=== PATIENT | female | born 1975 | race Caucasian/White ===

== ENCOUNTER 2016-11-09 12:31 | Emergency (ER) | payer OTHER ==
--- NOTE | 2016-11-09 13:02 | RADIOLOGY REPORT ---
HISTORY: Fall with hand pain. COMPARISON: None. FINDINGS: Three views of the wrist obtained. There is a comminuted fracture of the distal radial metaphysis wit h probable extension to the articular surface of the distal radioulnar joint and radiocarpal compartm ent. There is impaction with dorsal displacement and angulation. By best estimate, dorsal angulation estimated at 45 degrees. A comminuted fracture of the ulnar styloid is noted. IMPRESSION: Comminuted and impacted distal radius fracture with dorsal displacement and angulation. Comminuted fracture of the ulnar styloid. Final Electronic Signature: This report was electronically signed by Neymar Velázquez MD on 11/09/2016 1 2:59 PM. [email or web address] /
--- NOTE | 2016-11-09 13:58 | RADIOLOGY REPORT ---
HISTORY: Evaluate left wrist after reduction. Fracture. COMPARISON: Earlier today FINDINGS: Three views of the wrist obtained. The left wrist has been placed in a cast. A transverse distal radi us fracture remains impacted and continues to show moderate dorsal displacement of distal fragments. Angulation has resolved. An ulnar styloid process fracture is likely unchanged. IMPRESSION: Resolved angulation of the intrajugular distal radius fracture, but persistent moderate dorsal displa cement of distal fragments. Ulnar styloid process fracture is likely unchanged. Final Electronic Signature: This report was electronically signed by Fabian Reese MD on 11/09/2016 1:55 PM. [email or web address] /
--- NOTE | 2016-11-09 14:10 | ER NURSING DOCUMENTATION ---
Nurse's Notes [facility] Name:Sharon Richardson Age:41 yrs Sex:Female :1975 Arrival Date:11/09/2016 Time:12:31 Bed6 Private MD: Diagnosis:Ulnar Styloid Fracture;Colles Fracture Presentation: 11/09 12:43 Presenting complaint: Patient states: Pt FOOSH on left. Splinted by [employer] r[employer], pt tg hiked out. Last meal at 0600, otherwise only sips of water. Fall at 10am. CMS intact. Transition of care: patient was not received from another setting of care. 12:43 Acuity: PEPPER 2 tg 12:43 Method Of Arrival: Private Vehicle tg Triage Assessment: 12:52 General: Appears in no apparent distress, Behavior is cooperative. Pain: Complains of tg pain in left wrist. Neuro: Level of Consciousness is awake, alert. Respiratory: Respiratory effort is even, unlabored. Derm: No deficits noted. Skin is pink, warm & dry. Musculoskeletal: Circulation, motion, and sensation intact Capillary refill < 3 seconds in left fingers. Historical: - Allergies: SULFA (SULFONAMIDES); - Home Meds: 1. MVI 2. ProAir HFA inhalation - PMHx: ASTHMA; atopic dermatitis; patent foramen ovale; - PSHx: uterine surgery; - Tetanus: < 10 years. - Ebola Screening: : Patient negative for fever greater than or equal to 101.5 degrees Fahrenheit, and additional compatible Ebola Virus Disease symptoms. Patient denies exposure to infectious person. Patient denies travel to an Ebola-affected area in the 21 days before illness onset. No symptoms or risks identified at this time. . - Immunization history: Flu Vaccine unknown. - Social history: Smoking status: Patient states was never smoker of tobacco. Screenin:53 Infectious Disease Risk Unable to Obtain. Abuse screen: Denies threats or abuse. Denies tg injuries from another. Nutritional screening: No deficits noted. Vital Signs: 12:48 BP 123 / 62; Pulse 50; Resp 14; Pulse Ox 99% on R/A; Weight 54.43 kg (R); Height 5 ft. tg 8 in. (172.72 cm) (R); Pain 4/10; 14:08 BP 118 / 61; Pulse 70; Resp 14; Pulse Ox 96% on R/A; Pain 0/10; tg 12:48 Body Mass Index 18.25 (54.43 kg, 172.72 cm) tg ED Course: 12:36 Patient arrived in ED. dp 12:43 Dwight Chauhan RN is Primary Nurse. tg 12:46 Triage completed. tg 12:53 Valuables Remains with patient. tg 13:08 Darci Phillips MD is Attending Physician. david 13:08 Affected limb iced. Affected limb elevated. tg 13:42 Port Xray Completed. kaylie 13:46 Assist Provider Assist provider with reduction of left wrist using traction, tg manipulation, Set up for procedure. Performed by Darci Phillips MD Immobilized with OCL splint, deny wrap, sling, Patient tolerated well. Administered Medications: No medications were administered Outcome: 13:56 Discharge ordered by . david 14:08 Discharged to home ambulatory. tg 14:08 Condition: stable 14:08 Discharge Assessment: Patient awake and alert. 14:08 Instructed on discharge instructions, follow up and referral plans. medication usage, Ortho Care Prescriptions given X 1. 14:09 Patient left the ED. tg 11/10 12:20 Discharge F/U Call: Spoke with: patient. Are you having any pain? no. Have you filled sj your prescriptions? n/a Did your discharge instructions answer all of your questions? yes Have you made a f/u appointment? yes Overall Care on a scale of 1-10 with 10 being the best care, you rate our care as: Other comments: currently having tingling to fingers. Encouraged to loosen deny wrap, keep elevated. if no improvement, call back. ED number given. Signatures: Dwight Chauhan, DIPTI RN Darci Phillips MD MD jm Abbott, Elaine Henao Denise dp
--- NOTE | 2016-11-09 14:10 | ER PHYSICIAN DOCUMENTATION ---
Physician Documentation [facility] Name:Sharon Richardson Age:41 yrs Sex:Female :1975 Arrival Date:11/09/2016 Time:12:31 Bed6 Private MD: Darci Dong Disposition: 11/09/16 13:56 Discharged to Home/Self Care. Impression: Ulnar Styloid Fracture, Colles Fracture. - Condition is Good. - Discharge Instructions: COLLES FRACTURE, Reduction Required. - Prescriptions for Hydrocodone- Acetaminophen 5-325 mg Oral Tablet - take 1 tablet by ORAL route every 6 hours As needed; 20 tablet. - Medical Reconciliation form form. - Follow up: Private Physician; When: As needed; Reason: Continuance of care. - Problem is new. - Symptoms have improved. HPI: 11/09 13:16 This 41 yrs old Female presents to ER via Private Vehicle with complaints of jm Wrist Injury - LEFT. 13:16 The patient or guardian reports pain. The complaints affect the left wrist diffusely. jm Context: resulted from a fall, on an outstretched hand. Onset: The symptom(s)/episode began/occurred 2 hour(s) ago. The patient has not recently seen a physician. Historical: - Allergies: SULFA (SULFONAMIDES); - Home Meds: 1. MVI 2. ProAir HFA inhalation - PMHx: ASTHMA; atopic dermatitis; patent foramen ovale; - PSHx: uterine surgery; - Tetanus: < 10 years. - Ebola Screening: : Patient negative for fever greater than or equal to 101.5 degrees Fahrenheit, and additional compatible Ebola Virus Disease symptoms. Patient denies exposure to infectious person. Patient denies travel to an Ebola-affected area in the 21 days before illness onset. No symptoms or risks identified at this time. . - Immunization history: Flu Vaccine unknown. - Social history: Smoking status: Patient states was never smoker of tobacco. ROS: 13:16 MS/extremity: Positive for injury or acute deformity, decreased range of motion, jm deformity. 13:16 Skin: Positive for swelling. 13:16 Neuro: Negative for numbness, tingling. Exam: 13:17 Hand exam: Exam is positive for decreased range of motion, deformity, Circulation is jm intact in all extremities. sensation intact. 13:17 Skin: Appearance: Color: pink, swelling, that are moderate, injury, is not appreciated, puncture(s), are not present. 13:17 Constitutional: The patient appears alert, awake. 13:17 Cardiovascular: Rate: normal, Rhythm: regular. Vital Signs: 12:48 BP 123 / 62; Pulse 50; Resp 14; Pulse Ox 99% on R/A; Weight 54.43 kg (R); Height 5 ft. tg 8 in. (172.72 cm) (R); Pain 4/10; 14:08 BP 118 / 61; Pulse 70; Resp 14; Pulse Ox 96% on R/A; Pain 0/10; tg 12:48 Body Mass Index 18.25 (54.43 kg, 172.72 cm) tg Procedures: 13:17 Nerve block: (regional) of L wrist hematoma. Medication: Lidocaine 1% with epinephrine, david Amount: 10 mls were injected, Effect: the patient's symptoms are improved, Set up for procedure. Performed by Darci Phillips MD Patient tolerated well. Reduction: of the left wrist, using traction, manipulation, Immobilized with wrist splint, Patient tolerated well. Post reduction film - reveals improved alignment. Splinting: Splint applied to left arm using Orthoglass splint, applied by myself. post reduction film - reveals improved alignment, Examined by me, post splint application: neurovascular intact, brisk capillary refill noted, Patient tolerated well. MDM: 12:37 Patient medically screened. david 13:18 Differential diagnosis: dislocation, closed fracture. Data reviewed: vital signs, nurses notes, radiologic studies, and as a result, I will discharge patient. Counseling: I had a detailed discussion with the patient and/or guardian regarding: the historical points, exam findings, and any diagnostic results supporting the discharge/admit diagnosis, radiology results. 14:45 ED course: Improved alinement of wrist, but not perfect. Will have pt f/u w ortho. DC home. . 11/09 13:03 Order name: WRIST; [place] [id number]; Complete Time: 13:08 EDMS 11/09 13:59 Order name: WRIST; [address] [place] [id number] EDMS 11/09 12:48 Order name: Ice Packs; Complete Time: 13:08 tg 11/09 13:49 Order name: ORTHO: Sling; Complete Time: 14:04 tg Dispensed Medications: No medications were administered Signatures: Dwight Chauhan, DIPTI RN tg Darci Phillips MD MD jm
== END 2016-11-09 14:10 | disposition home or self-care (01) ==
LOC: ER 12:31
DX: S52.532A Colles' fracture of left radius, initial encounter for closed fracture (principal); S52.615A Nondisplaced fracture of left ulna styloid process, initial encounter for closed fracture; W18.30XA Fall on same level, unspecified, initial encounter; Y92.838 Other recreation area as the place of occurrence of the external cause; Y93.01 Activity, walking, marching and hiking
CPT/HCPCS: 64421; 99284